=== PATIENT | female | born 1990 | race Caucasian/White ===

== ENCOUNTER → 2018-07-17 | Outpatient (CLI) | payer OTHER ==
[2018-07-17 17:38] LABS: ABSOLUTE EOSINOPHILS # (AUTO) 0.1 10^3/uL (0.0-0.6); ABSOLUTE LYMPHOCYTES (AUTO) 1.8 10^3/uL (0.5-4.7); ABSOLUTE MONOCYTES (AUTO) 0.6 10^3/uL (0.1-1.4); ABSOLUTE NEUT (AUTO) 5.4 10^3/uL (1.7-8.2); BASOPHILS % (AUTO) 0.6 % (0-2); EOSINOPHILS % (AUTO) 1.3 % (0-6); HEMATOCRIT 40.3 % (36.0-47.0); HEMOGLOBIN 13.5 g/dL (12.0-15.5); LYMPHOCYTES % (AUTO) 22.7 % (13-45); MEAN CORPUSCULAR HEMOGLOBIN 27.5 pg (27.0-33.4); MEAN CORPUSCULAR HGB CONC 33.4 g/dL (32.0-36.0); MEAN CORPUSCULAR VOLUME 82 fl (80-97); MONOCYTES % (AUTO) 7.6 % (3-13); PLATELET COUNT 252 10^3/uL (150-450); RED CELL DISTRIBUTION WIDTH 15.8 % (11.5-14.0); SEGMENTED NEUTROPHILS % (AUTO) 67.8 % (42-78); TOTAL CELLS COUNTED % (AUTO) 100 %; WHITE BLOOD COUNT 7.9 10^3/uL (4.0-10.5)
== END ==
LOC: OD 16:34
PROVIDERS: ATTEND Family Medicine
DX: E22.9 Hyperfunction of pituitary gland, unspecified (principal); N91.2 Amenorrhea, unspecified; K06.8 Other specified disorders of gingiva and edentulous alveolar ridge
CPT/HCPCS: 36415; 83001; 83002; 84146; 84443; 84703; 85025

== ENCOUNTER → 2018-10-23 | Outpatient (CLI) | payer OTHER | LOC: OD 11:07 | PROVIDERS: ATTEND Family Medicine | DX: Z32.01 Encounter for pregnancy test, result positive (principal) | CPT/HCPCS: 36415; 84703 ==

== ENCOUNTER 2019-06-23 07:50 | Inpatient (IN) | payer OTHER ==
[2019-06-23 08:31] LABS: APPEARANCE,URINE SLIGHTLY-CLOUDY; BILIRUBIN,URINE NEGATIVE (NEGATIVE); COLOR,URINE YELLOW; GLUCOSE, URINE 50 mg/dL (NEGATIVE); KETONES,URINE NEGATIVE (NEGATIVE); LEUKOCYTE ESTERASE,URINE NEGATIVE (NEGATIVE); NITRITE,URINE NEGATIVE (NEGATIVE); PROTEIN,URINE NEGATIVE (NEGATIVE); URINE SPECIFIC GRAVITY 1.011; UROBILINOGEN,URINE NEGATIVE mg/dL (<2.0)
[2019-06-23] MEDS ORDERED: RINGERS SOLUTION,LACTATED 1,000 ML IV ONE (08:36)
[2019-06-23] MEDS ORDERED: OXYTOCIN/NORMAL SALINE 20 UNIT/1,000 ML RTUINJ IV PRN ×2 (08:36→22:43)
[2019-06-23] MEDS ORDERED: RINGERS SOLUTION,LACTATED 1,000 ML IV PRN (08:36)
[2019-06-23 08:51] LABS: URINE AMPHETAMINES SCREEN NEGATIVE; URINE BARBITURATES SCREEN NEGATIVE; URINE BENZODIAZEPINES SCREEN NEGATIVE; URINE COCAINE SCREEN NEGATIVE; URINE MARIJUANA (THC) SCREEN NEGATIVE; URINE METHADONE SCREEN NEGATIVE; URINE PHENCYCLIDINE SCREEN NEGATIVE
[2019-06-23] MEDS ORDERED: OXYTOCIN/NORMAL SALINE 20 UNIT/1,000 ML RTUINJ ONE (08:55)
[2019-06-23] MEDS ORDERED: LIDOCAINE 1% INJ-PF (10 MG/ML) 30 ML SDV ONE (09:10)
[2019-06-23] MEDS ORDERED: MISOPROSTOL 0.2 MG TABLET ONE (09:10)
[2019-06-23] MEDS ORDERED: OXYTOCIN 10 UNIT/ML VIAL ONE (09:10)
[2019-06-23 09:14] LABS: ABSOLUTE LYMPHOCYTES (AUTO) 1.6 10^3/uL (0.5-4.7); ABSOLUTE MONOCYTES (AUTO) 0.9 10^3/uL (0.1-1.4); ABSOLUTE NEUT (AUTO) 8.9 10^3/uL (1.7-8.2); BASOPHILS % (AUTO) 0.4 % (0-2); EOSINOPHILS % (AUTO) 0.4 % (0-6); HEMATOCRIT 34.7 % (36.0-47.0); HEMOGLOBIN 11.6 g/dL (12.0-15.5); MEAN CORPUSCULAR HEMOGLOBIN 28.4 pg (27.0-33.4); MEAN CORPUSCULAR HGB CONC 33.6 g/dL (32.0-36.0); MEAN CORPUSCULAR VOLUME 85 fl (80-97); MONOCYTES % (AUTO) 7.4 % (3-13); RED BLOOD COUNT 4.09 10^6/uL (3.72-5.28); RED CELL DISTRIBUTION WIDTH 13.5 % (11.5-14.0); SEGMENTED NEUTROPHILS % (AUTO) 77.8 % (42-78); TOTAL CELLS COUNTED % (AUTO) 100 %; WHITE BLOOD COUNT 11.5 10^3/uL (4.0-10.5)
[2019-06-23 09:46] LABS: PLATELET COUNT 121 10^3/uL (150-450)
--- NOTE | 2019-06-23 11:57 | Admission Physical ---
Datetime Report Generated by CPN: 06/23/2019 11:56 CURRENT ADMISSION Chief Complaint: Suspected Ruptured Membranes Indication for Induction: PROM Admit Impression : Term, Intrauterine ; No Active Labor; Ruptured Membranes; Induction of Labor Admit Plan: Admit to Unit; Initiate Labor Induction Protocol ALLERGIES Medication Allergies: No Medication Allergies: No Known Allergies (06/23/2019) Latex: No Latex Allergies OBSTETRICAL HISTORY EDC: 07/02/2019 00:00 : 1 Para: 0 Term: 0 : 0 SAB: 0 IAB: 0 Ectopic: 0 Livin Cesareans: 0 VBACs: 0 Multiple Births: 0 Gestational Diabetes: No Rh Sensitization: No Incompetent Cervix: No YOLY: No Infertility: No ART Treatment: No Uterine Anomaly: No IUGR: No Hx Previous C/S: No Macrosomia: No Hx Loss/Stillborn: No PIH: No Hx : No Placenta Previa/Abruption: No Depression/PP Depression: No PTL/PROM: No Post Hemorrhage: No Current Procedures: Ultrasound; NST Obstetrical History Comments: G1: current SEE RECORDS Alcohol: No Marijuana : No Cocaine: No Other Illicit Drugs: No Cigarettes: Never Smoker. 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: No Heart Disease: No Hosp/Surgery: Yes Autoimmune Disorder: No Anesthetic Complications: No Kidney Disease: No Abnormal Pap Smear: No Neuro/Epilepsy: No Psychiatric Disorders: No Other Medical Diseases: No Hepatitis/Liver Disease: No Significant Family History: No Varicosities/Phlebitis: No Trauma/Violence : No Thyroid Dysfunction: No Medical History Comments: tonsillectomy and adenoidectomy 2002 INFECTIOUS HISTORY Gonorrhea: No Genital Herpes: No Chlamydia: Yes Tuberculosis: No Syphilis: No Hepatitis: No HIV/AIDS Exposure: No Rash or Viral Illness: No HPV: No Infectious History Comments: chlamydia 2015 treated to cure PHYSICAL EXAM General: Normal HEENT: Normal Neurologic: Normal Thyroid: Deferred Heart: Normal Lungs: Normal Breast: Deferred Back: Normal Abdomen: Normal Genitourinary Exam: Normal Extremities: Normal DTRs: Normal Pelvic Type: Adequate Vital Signs: Reviewed VAGINAL EXAM Dilatation: 1 Effacement: 50 Station: -3 Contraction Comments: q 3-6 MEMBRANES Membranes: Ruptured Amniotic Fluid Color: Clear FETUS A EGA: 38.5 Monitoring: External US FHR- Baseline: 145 Variability: Moderate 6-25bpm Accelerations: 15X15 Decelerations: None FHR Category: Category I Presentation: Vertex Admit Comment: 28yo at 38+5ega presents for SROM at 0400 this am (clear fluid). vertex presentation verified by US. GBS negative. High BP a couple of times - baseline 24 hr UTP 177mg. Admit for labor and delivery - IOL with pitocin and cook catheter PLANS FOR LABOR AND DELIVERY Labor and Delivery: None Pain Management: Natural Feeding Preference: Breast Benefit of Breast Feed Discussed: Yes Circumcision: Yes INFORMED CONSENT Informed Consent Obtained: Vaginal Delivery; Induction of Labor; Risks, Benefits and Alternatives Discussed Signature: with User ID: [email or web address]
[2019-06-23] MEDS ORDERED: GENTAMICIN SULFATE INJ 80 MG/2 ML VIAL IV PRN (22:25)
[2019-06-23] MEDS ORDERED: GENTAMICIN SULFATE 200 MG in DEXTROSE 5%-WATER 100 ML IV ONE (22:30)
[2019-06-23] MEDS ORDERED: NALBUPHINE HCL INJ 10 MG/1 ML AMPULE ONE (22:44)
[2019-06-23] MEDS ORDERED: NALBUPHINE HCL INJ 10 MG/1 ML AMPULE INJ ONE (22:45)
[2019-06-23] MEDS ORDERED: AMPICILLIN SOD INJ 2 GM VIAL ONE (23:03)
[2019-06-23] MEDS ORDERED: GENTAMICIN SULFATE INJ 80 MG/2 ML VIAL ONE (23:03)
[2019-06-23] MEDS ORDERED: AMPICILLIN SOD INJ 2 GM VIAL IV SCH (23:15)
[2019-06-23] MEDS ORDERED: AMPICILLIN SODIUM 2 GM in NORMAL SALINE 100 ML IV ONE (23:15)
[2019-06-24] MEDS ORDERED: AMPICILLIN SOD INJ 2 GM VIAL IM SCH
[2019-06-24] MEDS ORDERED: ACETAMINOPHEN WITH CODEINE #3 TABLET PO PRN (03:38)
[2019-06-24] MEDS ORDERED: MEASLES,MUMPS&RUBELLA VACC/PF 0.5 ML VIAL SUBCUT PRN (03:38)
[2019-06-24] MEDS ORDERED: DIBUCAINE 1% OINTMENT 28 GM TP PRN (03:38)
[2019-06-24] MEDS ORDERED: BENZOCAINE/MENTHOL AEROSOL SPRAY 56 ML TOP PRN (03:38)
[2019-06-24] MEDS ORDERED: DIPH/PERTUSS(ACELL)/TETANUS VAC/PF 0.5 ML SYR (>=10YO) IM PRN (03:38)
[2019-06-24] MEDS ORDERED: OXYTOCIN/NORMAL SALINE 20 UNIT/1,000 ML RTUINJ IV PRN (03:38)
[2019-06-24] MEDS ORDERED: ZOLPIDEM TARTRATE 5 MG TABLET PO PRN (03:38)
[2019-06-24] MEDS ORDERED: IBUPROFEN 800 MG TABLET ONE (03:58)
--- NOTE | 2019-06-24 04:10 | Delivery Summary ---
Del Sum A-C Datetime Report Generated by CPN: 06/24/2019 04:10 DELIVERY PERSONNEL DELIVERY PERSONNEL: [id number] Delivery Doctor:: Susannah Jacobs CNM Nurse Handkerchief Cutter Certified:: Susannah Jacobs CNM Labor and Delivery Nurse:: Carla Smith RNlaborer pipeline Nurse:: Shalini Saravia RN Systems Spec/EVP OPERATIONS: Maryam Artis, ST MATERNAL INFORMATION Delivery Anesthesia: None Medications After Delivery: Pitocin Drip 20 Units/1000ml NSS Meds After Delivery Comment: cytotec 200mcg SL Provider Comments: of VMI, OA presentation, loose nuchal/body cord at shoulder noted. Baby placed on pts abdoman in stable condition. Cord clamped and cut after one minute. Cord blood obtained. Placenta S/C/I, uterine atony noted. IV Pitocin infusing, 200 mcg SL Cytotec given. Fundus firmed with bimanual massage. Repair of 2nd degree laceration, Apgars 8,9. QBL 550. Mother and baby left in stable condition, skin to skin. She plans to breastfeed. Attending MD is Dr Vo. LABOR SUMMARY EDC: 07/02/2019 00:00 No. Babies in Womb: 1 Attempted: No Labor Anesthesia: IV Sedation LABOR INFORMATION Reason for Induction: Not Applicable Onset of Labor: 06/23/2019 14:44 Complete Dilatation: 06/24/2019 02:42 Cervical Ripening Agents: Jay Balloon Oxytocin: Augmentation Group B Beta Strep: negative Antibiotics # of Doses: 1 of each Antibiotics Time of Last Dose: 2315/2309 Name of Antibiotic Given: Gentamycin and Amp Steroids Given: None Reason Steroids Not Administered: Not Applicable MEMBRANES Membranes Rupture Method: Spontaneous Rupture of Membranes: 06/23/2019 04:00 Length of Rupture (hr): 23.23 Amniotic Fluid Color: Clear Amniotic Fluid Amount: Moderate Amniotic Fluid Odor: Normal STAGES OF LABOR Stage 1 hr: 11 Stage 1 min: 58 Stage 2 hr: 0 Stage 2 min: 32 Stage 3 hr: 0 Stage 3 min: 5 Total Time in Labor hr: 12 Total Time in Labor min: 35 VAGINAL DELIVERY Episiotomy: None Laceration #1: Vaginal Laceration Extension #1: Second Degree Laceration Repair: Yes Laceration Repair Note: Small 2nd degree laceration w/ 3.0 Vicryl, 1% lidocaine injection to numb the area, pt tolerated well Sponge Count Correct: Yes Sharps Count Correct: Yes CSECTION DELIVERY Primary Indication: N/A Secondary Indication: N/A CSection Incidence: N/A Labor: N/A Elective: N/A CSection Incision: N/A BABY A INFORMATION Delivery Date/Time: 06/24/2019 03:14 Method of Delivery: Vaginal Born in Route : No : N/A Forceps: N/A Vacuum Extraction: N/A Shoulder Dystocia : No PRESENTATION/POSITION BABY A Presentation: Cephalic Cephalic Presentation: Vertex Vertex Position: Left Occipital Anterior Breech Presentation: N/A PLACENTA INFORMATION BABY A Placenta Delivery Time : 06/24/2019 03:19 Placenta Method of Delivery: Spontaneous Placenta Status: Delivered SCORES BABY A Heart Rate 1 min: >100 bpm Resp Effort 1 min: Good Cry Reflex Irritability 1 min: Cough or Sneeze or Pulls Away Muscle Tone 1 min: Active Motion Color 1 min: Blue/Pale Resuscitation Effort 1 min: Tactile Stimulation SCORE 1 MIN: 8 Heart Rate 5 min: >100 bpm Resp Effort 5 min: Good Cry Reflex Irritability 5 min: Cough or Sneeze or Pulls Away Muscle Tone 5 min: Active Motion Color 5 min: Body [place], Extremities Blue Resuscitation Effort 5 min: Tactile Stimulation SCORE 5 MIN: 9 INFANT INFORMATION BABY A Gestational Age at Delivery: 38.0 Gestational Status: Early Term- 37- 38.6 Weeks Outcome : Liveborn Infant Condition : Stable Infant Sex: Male IDENTIFICATION BABY A Verification Date/Time: 06/24/2019 03:56 ID Band Number: [id number] Mother's Name Verified: Yes Infant RN Verifying Infant: Otto Smith RN/ Jessica Reyes RN WEIGHT/LENGTH BABY A Birthweight (gm): 3114 Weight (lb): 6 Weight (oz): 14 Length (in): 20.00 Infant Length (cm): 50.80 CORD INFORMATION BABY A No. Cord Vessels: 3 Nuchal Cord : Around Neck x1, Loose Cord Blood Taken: Yes-For Eval (Mom's Blood Type - or O+) Suction: None ASSESSMENT BABY A Infant Complications: Multiple Late Decels Physical Findings at Delivery: Caput Succedaneum Respirations: Appears Normal Skin to Skin: Yes Medical Technologist Generalist/ALS Called : No Transferred To: Remains with Mother BABY B INFORMATION : N/A SIGNATURES Assignment: Sena Vo MD Signature: with User ID: [email or web address] : with User ID: [email or web address]
[2019-06-24] MEDS ORDERED: IBUPROFEN 800 MG TABLET PO ONE (04:15)
[2019-06-24] MEDS ORDERED: GENTAMICIN SULFATE INJ 80 MG/2 ML VIAL IV SCH (06:00)
[2019-06-24] MEDS ORDERED: GENTAMICIN SULFATE 150 MG in DEXTROSE 5%-WATER 100 ML IV SCH (06:00)
[2019-06-24] MEDS ORDERED: GENTAMICIN SULFATE INJ 80 MG/2 ML VIAL IV ONE (06:00)
[2019-06-24] MEDS ORDERED: AMPICILLIN SODIUM 2 GM in NORMAL SALINE 100 ML IV SCH (06:00)
--- NOTE | 2019-06-24 09:51 | Warning Signs in Babies ---
VOD Warning Signs Datetime Report Generated by [facility]: 06/24/2019 09:50 VOD#608 -Warning Signs in Babies: Viewed with Parent(s)/Family (06/23/2019 07:29:Victor Hugo Banks RN)
--- NOTE | 2019-06-24 09:52 | Warning Signs in Babies ---
VOD Warning Signs Datetime Report Generated by [facility]: 06/24/2019 09:51 VOD#608 -Warning Signs in Babies: Viewed with Parent(s)/Family (06/24/2019 09:50:Victor Hugo Banks RN)
[2019-06-24] MEDS ORDERED: SENNOSIDES/DOCUSATE 8.6-50 MG 1 EACH TABLET ONE (10:57)
[2019-06-24] MEDS ORDERED: PRENATAL VITAMIN W DHA CAPSULE PO ONE (10:57)
[2019-06-24] MEDS ORDERED: FERROUS SULFATE 325 MG TABLET PO ONE (11:01)
[2019-06-24] MEDS ORDERED: DOCUSATE SODIUM 100 MG CAPSULE ONE (11:01)
[2019-06-24] MEDS: DOCUSATE SODIUM 100 MG CAPSULE PO SCH ×2 (11:02→17:37)
[2019-06-24] MEDS: PRENATAL VITAMIN W DHA CAPSULE PO SCH (11:03)
[2019-06-24] MEDS: FERROUS SULFATE 325 MG TABLET PO SCH (11:03)
[2019-06-24] MEDS: SENNOSIDES/DOCUSATE 8.6-50 MG 1 EACH TABLET PO SCH (11:03)
[2019-06-24] MEDS: IBUPROFEN 800 MG TABLET PO SCH ×2 (14:49→23:01)
[2019-06-25] MEDS: IBUPROFEN 800 MG TABLET PO SCH ×3 (06:24→22:23)
[2019-06-25 07:16] LABS: HEMATOCRIT 28.6 % (36.0-47.0); MEAN CORPUSCULAR HEMOGLOBIN 28.5 pg (27.0-33.4); MEAN CORPUSCULAR HGB CONC 33.4 g/dL (32.0-36.0); MEAN CORPUSCULAR VOLUME 85 fl (80-97); PLATELET COUNT 161 10^3/uL (150-450); RED BLOOD COUNT 3.35 10^6/uL (3.72-5.28); RED CELL DISTRIBUTION WIDTH 14.2 % (11.5-14.0); WHITE BLOOD COUNT 17.1 10^3/uL (4.0-10.5)
[2019-06-25 07:25] LABS: HEMOGLOBIN 9.5 g/dL (12.0-15.5)
[2019-06-25] MEDS: PRENATAL VITAMIN W DHA CAPSULE PO SCH (10:03)
[2019-06-25] MEDS: DOCUSATE SODIUM 100 MG CAPSULE PO SCH ×2 (10:04→18:22)
[2019-06-25] MEDS: SENNOSIDES/DOCUSATE 8.6-50 MG 1 EACH TABLET PO SCH (10:04)
[2019-06-25] MEDS: FERROUS SULFATE 325 MG TABLET PO SCH (10:04)
--- NOTE | 2019-06-25 12:23 | PDOC PROGRESS REPORT ---
Subjective-OB Progress Note for:: 06/25/19 Subjective: reports bleeding slowing, pain controlled with current meds Physical Exam (OB) Vital Signs: Temp Pulse Resp BP Pulse Ox 98.2 F 73 18 106/57 L 100 06/25/19 07:25 06/25/19 07:25 06/25/19 07:25 06/25/19 07:25 06/25/19 07:25 Intake & Output 06/24/19 06/25/19 06/26/19 06:59 06:59 06:59 Intake Total 1350 Balance 1350 Weight 100.1 kg - Abdomen Description: Soft Hernia Present: No Fundal Description: Firm, Midline Fundal Height: u/u - u/2 - Abdominal Distension: No distension Tenderness: Nontender - Extremities Lower extremities: Stephanie's sign - neg Calf: Normal, Nontender Objective-Diagnostic Laboratory: 06/25/19 07:00 06/25/19 07:00 WBC 17.1 H RBC 3.35 L Hgb 9.5 L D Hct 28.6 L MCV 85 MCH 28.5 MCHC 33.4 RDW 14.2 H Plt Count 161 Assessment and Plan(PN) - Assessment and Plan (1) PPH ( hemorrhage) Is this a current diagnosis for this admission?: Yes (2) (normal spontaneous vaginal delivery) Is this a current diagnosis for this admission?: Yes (3) SROM (spontaneous rupture of membranes) Is this a current diagnosis for this admission?: Yes - Time Spent with Patient Time with patient: Less than 15 minutes Medications reviewed and adjusted accordingly: Yes - Disposition Anticipated Discharge: Home Within: within 24 hours
[2019-06-26] MEDS: IBUPROFEN 800 MG TABLET PO SCH ×2 (05:52→14:06)
[2019-06-26 08:13] VITALS: BP 126/61
[2019-06-26] MEDS: PRENATAL VITAMIN W DHA CAPSULE PO SCH (11:00)
[2019-06-26] MEDS: FERROUS SULFATE 325 MG TABLET PO SCH (11:00)
[2019-06-26] MEDS: DOCUSATE SODIUM 100 MG CAPSULE PO SCH (11:00)
[2019-06-26] MEDS: SENNOSIDES/DOCUSATE 8.6-50 MG 1 EACH TABLET PO SCH (11:00)
--- NOTE | 2019-06-26 11:15 | PDOC DISCHARGE SUMMARY ---
Impression - Admit/DC Date/PCP Admission Date/Primary Care Provider: 06/23/19 08:39 JULIETA LAWRENCE MD Discharge Date: 06/26/19 - Discharge Diagnosis (1) PPH ( hemorrhage) Is this a current diagnosis for this admission?: Yes (2) (normal spontaneous vaginal delivery) Is this a current diagnosis for this admission?: Yes (3) SROM (spontaneous rupture of membranes) Is this a current diagnosis for this admission?: Yes - Additional Information Discharge Diet: Regular Discharge Activity: Balance Activity w/Rest, Pelvic Rest Referrals: JULIETA LAWRENCE MD [Primary Care Provider] - Prescriptions: Ibuprofen [Motrin 800 mg Tablet] 800 mg PO Q8HP PRN #90 tablet PRN Reason: Home Medications: Pnv No.95/Ferrous Fum/Folic AC [ Vitamin Tablet] 1 each PO DAILY 06/23/19 Ibuprofen [Motrin 800 mg Tablet] 800 mg PO Q8HP PRN #90 tablet 06/26/19 HPI Gestational Age: 38+5 Reason(s) for Admission: Induction of Labor - PPROM Procedures: NST Intrapartum Procedure(s): Spontaneous Vaginal Delivery Complication(s): Laceration-Perineal Laceration-Degree: 2nd Results Laboratory Results: WBC 17.1 10^3/uL (4.0-10.5) H 06/25/19 07:00 RBC 3.35 10^6/uL (3.72-5.28) L 06/25/19 07:00 Hgb 9.5 g/dL (12.0-15.5) L D 06/25/19 07:00 Hct 28.6 % (36.0-47.0) L 06/25/19 07:00 MCV 85 fl (80-97) 06/25/19 07:00 MCH 28.5 pg (27.0-33.4) 06/25/19 07:00 MCHC 33.4 g/dL (32.0-36.0) 06/25/19 07:00 RDW 14.2 % (11.5-14.0) H 06/25/19 07:00 Plt Count 161 10^3/uL (150-450) 06/25/19 07:00 Lymph % (Auto) 14.0 % (13-45) 06/23/19 08:57 [place] % (Auto) 7.4 % (3-13) 06/23/19 08:57 Eos % (Auto) 0.4 % (0-6) 06/23/19 08:57 Baso % (Auto) 0.4 % (0-2) 06/23/19 08:57 Absolute Neuts (auto) 8.9 10^3/uL (1.7-8.2) H 06/23/19 08:57 Absolute Lymphs (auto) 1.6 10^3/uL (0.5-4.7) 06/23/19 08:57 Absolute Monos (auto) 0.9 10^3/uL (0.1-1.4) 06/23/19 08:57 Absolute Eos (auto) 0.0 10^3/uL (0.0-0.6) 06/23/19 08:57 Absolute Basos (auto) 0.0 10^3/uL (0.0-0.2) 06/23/19 08:57 Seg Neutrophils % 77.8 % (42-78) 06/23/19 08:57 Urine Color YELLOW 06/23/19 08:05 Urine Appearance SLIGHTLY-CLOUDY 06/23/19 08:05 Urine pH 6.0 (5.0-9.0) 06/23/19 08:05 Ur Specific [place] 1.011 06/23/19 08:05 Urine Protein NEGATIVE mg/dL (NEGATIVE) 06/23/19 08:05 Urine Glucose (UA) 50 mg/dL (NEGATIVE) H 06/23/19 08:05 Urine Ketones NEGATIVE mg/dL (NEGATIVE) 06/23/19 08:05 Urine Blood NEGATIVE (NEGATIVE) 06/23/19 08:05 Urine Nitrite NEGATIVE (NEGATIVE) 06/23/19 08:05 Urine Bilirubin NEGATIVE (NEGATIVE) 06/23/19 08:05 Urine Urobilinogen NEGATIVE mg/dL (<2.0) 06/23/19 08:05 Ur Leukocyte Esterase NEGATIVE (NEGATIVE) 06/23/19 08:05 Urine Ascorbic Acid NEGATIVE (NEGATIVE) 06/23/19 08:05 Membranes Rupture POSITIVE (NEGATIVE) H 06/23/19 08:11 Urine Opiates Screen NEGATIVE 06/23/19 08:05 Urine Methadone Screen NEGATIVE 06/23/19 08:05 Ur Barbiturates Screen NEGATIVE 06/23/19 08:05 Ur Phencyclidine Scrn NEGATIVE 06/23/19 08:05 Ur Amphetamines Screen NEGATIVE 06/23/19 08:05 U Benzodiazepines Scrn NEGATIVE 06/23/19 08:05 Urine Cocaine Screen NEGATIVE 06/23/19 08:05 U Marijuana (THC) Screen NEGATIVE 06/23/19 08:05 RPR NONREACTIVE (NONREACTIVE) 06/23/19 08:57 Blood Type O POSITIVE 06/23/19 08:57 Antibody Screen NEGATIVE 06/23/19 08:57 Plan Plan of Treatment: follow up at [facility] for Post check in 4 weeks
== END 2019-06-26 15:30 | disposition home or self-care (01) | DRG 807 ==
LOC: LC 07:50 → LR 08:39 → 2S 06-24 13:15
PROVIDERS: ADMIT Student in an Organized Health Care Education/Training Program; ATTEND Student in an Organized Health Care Education/Training Program
PROC: 10E0XZZ Delivery of Products of Conception, External Approach (ICD-10-PCS; principal; 2019-06-24)
PROC: 0KQM0ZZ Repair Perineum Muscle, Open Approach (ICD-10-PCS; 2019-06-24)
DX: O72.1 Other immediate postpartum hemorrhage (principal); Z37.0 Single live birth; O69.81X0 Labor and delivery complicated by cord around neck, without compression, not applicable or unspecified; O70.1 Second degree perineal laceration during delivery; Z3A.38 38 weeks gestation of pregnancy
CPT/HCPCS: 36415; 80307; 81005; 84112; 85025; 85027; 86592; 86850; 86900; 86901; J0290; J1580; J2300; J2590; J3490; J7050; J7060